=== PATIENT | female | born 1965 | race Caucasian/White ===

== ENCOUNTER → 2016-12-22 06:11 | Day surgery (SDC) | payer OTHER ==
--- NOTE | 2016-12-11 19:39 | HP ---
PREOPERATIVE HISTORY AND PHYSICAL: DATE OF ADMISSION: 12/22/16 CHIEF COMPLAINT: Left forefoot pain. HISTORY OF PRESENT ILLNESS: Celia is a 51-year-old female who has been followed by Dr. King for ongoing pain in her left forefoot. She has rather permanent dorsal osteophytes, which have become more painful. She has tried wearing a stiff orthotic, which helps; however, it does not completely alleviate her pain. She has difficulty walking around barefoot or wearing any other kind of shoe. She enjoys walking and biking; however, she has difficulty doing this secondary to the pain. She is interested in surgical intervention for correction of the problem. PAST MEDICAL HISTORY: Hypothyroidism and psoriasis. PAST SURGICAL HISTORY: Oral surgery. She reports no complications with anesthesia with that procedure. CURRENT MEDICATIONS: 1. Metronidazole gel 1%, apply to the affected area of skin daily. 2. Fluocinolone 0.05%, apply to the affected area daily as needed. 3. Levothyroxine 75 mcg 1 p.o. daily. 4. Fluoxetine HCL 20 mg 1 p.o. daily. 5. Nasonex 50 mcg 1 spray each nostril daily as needed. 6. 1/35 mg/mcg 1 tab p.o. daily. 7. Doxycycline 40 mg p.o. daily. 8. Sulfacetamide cream as needed. ALLERGIES: BACTRIM. SOCIAL HISTORY: The patient lives with her spouse. She is a former smoker, she quit in 2004. She consumes 1 glass of wine per day. She is not currently working. She does enjoy exercising regularly. REVIEW OF SYSTEMS: Constitutional: Negative for recent hospitalization, fevers , chills, night sweats, or weight loss. Head: Negative for headaches, lightheadedness, or balance problems. Cardiovascular: Negative for chest or arm pain with exertion, history of heart attack, heart murmur, heart palpitations, high blood pressure, embolism, or deep vein thrombosis. Respiratory: Negative for chronic cough, shortness of breath with exertion, asthma, or COPD. Gastrointestinal: Negative for heartburn, nausea, vomiting, diarrhea, constipation, or GERD. Genitourinary: Negative for nighttime urination, frequency of urination, urinary tract infections or kidney problems. Musculoskeletal: Negative for chronic back pain. Negative for recent fractures. Skin: Positive for rashes due to her psoriasis. Negative for lesions, lumps, or sores. Neurologic: Negative for seizure, stroke, or epilepsy. Positive for depression and anxiety. Endocrine: Negative for diabetes. Positive for hypothyroidism. Hematology: Negative for easy bleeding , bruising, or anemia. PHYSICAL EXAMINATION GENERAL: She is a well-developed, well-nourished pleasant female, in no acute distress at rest. She is alert and oriented x3 with appropriate mood and affect. VITAL SIGNS: The patient is 5 feet 3, 126 pounds. Blood pressure 116/72, pulse of 80, respirations 16. HEENT: Normocephalic, atraumatic. Hearing and vision are grossly intact. NECK: Her trachea is midline. RESPIRATORY: Lungs clear to auscultation bilaterally. No wheezes, rales, or rhonchi. CARDIOVASCULAR: Regular rate and rhythm. No murmurs, rubs, or gallops. Normal S1, S2. ABDOMEN: Soft, nondistended, nontender. Normal bowel sounds. EXTREMITIES: Exam of the left lower extremity, skin is intact without abrasions or open wound. There is no edema or ecchymosis. There are palpable dorsal osteophytes, which are tender to palpation. She has limited dorsiflexion and plantar flexion at the first MTP joint and does have pain with range of motion. Sensation to light touch is intact. She has a 2+ dorsalis pedis pulse. 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 IMPRESSION: Left foot hallux rigidus. PLAN: The patient is to undergo left foot first MTP joint cheilectomy by Dr. King on 12/22/16. The risks, benefits, and postoperative course were discussed with the patient at length and she would like to proceed. A prescription for oxycodone was sent to her pharmacy for postoperative pain. All of her questions were answered to her full satisfaction. She is understanding to call if she develops any problems or concerns. We will follow up with the patient in the postoperative phase. RUDY LOOMIS [id number]/[facility] #: [id number] [place]
[~2016-12-22 06:11] MED LIST: Buffered Lidocaine 1% SYRIN* 3 ML/SYR SYRINGE INTRADERM ONE; Bupivacaine 0.5% SDV PF* 30 ML VIAL ONE; Dexamethasone IV* 4 MG/ML 1 ML (4 MG) IV SLOW PU ONE; Dexamethasone IV* 4 MG/ML 1 ML (4 MG) ONE; Famotidine IV* 10 MG/ML 2 ML (20 mg) IV ONE; Famotidine IV* 10 MG/ML 2 ML (20 mg) ONE; HYDROcodone/ACETAMIN 5-325 MG* 1 TAB PO PRN; Ketorolac INJ* 30 MG/ML 1 ML VIAL IV PRN; Lidocaine 2% PF* 10 ML AMP ONE; Lidocaine 2% PF* 5 ML VIAL ONE; Midazolam* 1 MG/ML 5 ML VIAL (5 MG) ONE; Ondansetron INJ* 2 MG/ML VIAL ONE; PROCHLORPERAZINE INJ 5 MG/ML 2 ML VIAL IV PRN; Propofol* 10 MG/ML 20 ML BTL IV PUSH ONE; ceFAZolin 2 GM PREMIX(*) 2 GM/50 ML BAG IVPB ONE; fentaNYL* 50 MCG/ML 2 ML VIAL (100 MCG VIAL) IV PRN; fentaNYL* 50 MCG/ML 2 ML VIAL (100 MCG VIAL) ONE
[2016-12-22 06:34] LABS: UR Preg Internal Control QC Line Present
[2016-12-22 09:18] VITALS: BP 132/84
--- NOTE | 2016-12-23 13:00 | OP ---
DATE OF OPERATION: 12/22/16 [facility] DATE OF : 65 SURGEON: Phillip King MD LINER CHECKER: Annette Bob PA-C ANESTHESIOLOGIST: Enedelia Summers MD ANESTHESIA: MAC PRE-OP DIAGNOSIS: Left hallux rigidus. POST-OP DIAGNOSIS: Left hallux rigidus. OPERATIVE PROCEDURE: Cheilectomy, left first MTP joint. DESCRIPTION OF PROCEDURE: The patient was taken to the operating room where a longitudinal incision was made over the dorsum of the left first MTP joint. We pealed medially and laterally reflecting the capsule to allow visualization of the dorsal osteophytes, which were removed with microsagittal saw as well as the rim osteophytes in the proximal phalanx. Interestingly, she had complete loss of cartilage over the dorsal 50% of the joint. This was then drilled with a 0.035 C- wire. There was free motion noted at this point. We irrigated thoroughly, closing the capsule with 3-0 Vicryl, skin with 4-0 nylon, and a compression dressing applied. [id number]/[facility] #: [id number] [facility]
== END | disposition home or self-care (01) ==
LOC: OR 06:11
PROVIDERS: ATTEND Orthopaedic Surgery
DX: M20.22 Hallux rigidus, left foot (principal); E03.9 Hypothyroidism, unspecified; D64.9 Anemia, unspecified
CPT/HCPCS: 81025; C1776; J0690; J1100; J2001; J2250; J2405; J2704; J3010